=== PATIENT | female | born 1975 | race Caucasian/White ===

== ENCOUNTER 2016-03-15 19:26 | Emergency (ER) | payer OTHER ==
[~2016-03-15] VITALS: Ht 170.2 cm; Wt 89.4 kg
--- NOTE | ~2016-03-15 | EKG ---
[address] [address] ELECTROCARDIOGRAM REPORT Name: DEBORA WHEELER Room [facility]: [facility] [id number] Admission: 03/15/16 Attend Phys: Discharge: 03/15/16 Date of : 73 Report #: [id number] THIS REPORT FOR: //name// [facility] ED Test Date: 2016-03-15 Test Time: 19:36:00 Pat Name: DEBORA YORK Department: Room: Gender: F [employer] Worker: MZOOK : 1975 Requested By: Emma Gasca Order Number: [id number] MD: Daniele Navarrete Measurements Intervals [place] Rate: 78 P: 11 CO: 140 QRS: 59 QRSD: 99 T: 17 QT: 365 QTc: 416 Interpretive Statements Sinus rhythm Low voltage, precordial leads No previous ECG available for comparison Electronically Signed On 03-16-2016 8:21:48 [employer] by Daniele Navarrete [email or web address] <ELECTRONICALLY SIGNED> By: Daniele Navarrete MD 03/16/16 0821 1936 35 Daniele Navarrete MD /VINNY
[~2016-03-15 19:26] MED LIST: ACYCLOVIR 400400 MG PO; ASPIRIN EC325 M1 PO; AZO1 EACH PO; CILOXAN5 ML OP; FLAX SEED OIL1000 MG PO; GLIPIZIDE ER10 MG PO; GLUCOPHAGE1000 MG PO; GYNODIOL0.5 MG PO; LANTUS SUBQ; LOVASTAT10 PO; MULTIVITAMINS1 EAC7 PO; NORCO 5-325 TA1 EACH PO; PRINIVIL20 MG PO; TOBRADEX ST EYE5 ML OP; VICOPROFEN 2001 EACH PO; ZOFRAN ODT4 MG PO
[2016-03-15 19:46] LABS: ABSOLUTE NEUTROPHILS 4.3 thou/uL (1.4-8.2); BASOPHILS 0.6 % (0.0-2.0); HEMATOCRIT 44.5 % (37.0-47.0); HEMOGLOBIN 15.5 gm/dL (12.0-15.0); MCH 29.1 pg (26.0-34.0); MCHC 34.9 % (28.0-37.0); MCV 83.3 fL (80.0-100.0); MONOCYTES 5.7 % (1.0-8.0); PLATELET COUNT 197 thou/uL (150-400); POLYS 52.7 % (36.0-66.0); RBC 5.34 mil/uL (4.20-5.00); RDW 12.8 % (10.5-14.5); WBC 8.1 thou/uL (4.0-11.0)
[2016-03-15 19:52] LABS: MANUAL DIFF NO
[2016-03-15 20:12] LABS: ALBUMIN 3.7 g/dL (3.4-5.0); ALKALINE PHOSPHATASE 66 U/L (46-116); ANION GAP 13 mmol/L (7-16); BUN 12 mg/dL (7-18); CALCIUM 9.2 mg/dL (8.5-10.1); CHLORIDE 102 mmol/L (98-107); CO2 25 mmol/L (21-32); GLUCOSE 337 mg/dL (70-99); MAGNESIUM 1.7 mg/dL (1.8-2.4); POTASSIUM 3.8 mmol/L (3.5-5.1); SGOT 37 U/L (15-37); SGPT 102 U/L (30-65); SODIUM 140 mmol/L (136-145); TOTAL BILIRUBIN 0.3 mg/dL (<0.1-1.0); TOTAL PROTEIN 7.3 g/dL (6.4-8.2); TROPONIN-I < 0.04 ng/mL (<0.04-0.07)
[2016-03-15 21:14] VITALS: BP 121/72
== END 2016-03-15 21:15 | disposition home or self-care (01) ==
LOC: ER 19:26
PROVIDERS: Emergency Medicine
DX: R73.9 Hyperglycemia, unspecified (principal); R07.9 Chest pain, unspecified; Z90.89 Acquired absence of other organs; E11.9 Type 2 diabetes mellitus without complications; Z88.6 Allergy status to analgesic agent; Z88.0 Allergy status to penicillin; Z88.5 Allergy status to narcotic agent; Z91.041 Radiographic dye allergy status

== ENCOUNTER 2017-03-20 12:17 | Emergency (ER) | payer BC, OTHER ==
[~2017-03-20] VITALS: Ht 170.2 cm; Wt 85.3 kg
[2017-03-20] MEDS ORDERED: NORCO 5-325 TA1 EACH PO (15:01)
[2017-03-20] MEDS ORDERED: PREDNISONE 20 M20 MG PO (15:01)
== END 2017-03-20 16:45 | disposition home or self-care (01) ==
LOC: ER 12:17
DX: M54.30 Sciatica, unspecified side (principal); E11.9 Type 2 diabetes mellitus without complications; Z88.6 Allergy status to analgesic agent; Z88.0 Allergy status to penicillin; Z90.49 Acquired absence of other specified parts of digestive tract